=== PATIENT | female | born 1990 | race Two or more races ===

== ENCOUNTER 2017-09-07 13:26 | Emergency (ER) | payer SELFPAY ==
[~2017-09-07] VITALS: Ht 162.6 cm; Wt 88.1 kg
[~2017-09-07 13:26] MED LIST: KEFLEX500 MG PO; MOTRIN600 MG PO
[2017-09-07] MEDS ORDERED: NAPROSYN500 MG PO (15:21)
[2017-09-07 15:29] VITALS: BP 128/70
== END 2017-09-07 15:32 | disposition home or self-care (01) ==
LOC: EME 13:26
DX: S83.004A Unspecified dislocation of right patella, initial encounter (principal); S83.91XA Sprain of unspecified site of right knee, initial encounter; W01.10XA Fall on same level from slipping, tripping and stumbling with subsequent striking against unspecified object, initial encounter; Y93.01 Activity, walking, marching and hiking; Y92.009 Unspecified place in unspecified non-institutional (private) residence as the place of occurrence of the external cause
CPT/HCPCS: 73564; 99281; 99284

== ENCOUNTER 2018-02-01 09:22 | Emergency (ER) | payer SELFPAY ==
[~2018-02-01 09:22] MED LIST changes: +NAPROSYN500 MG PO
== END 2018-02-01 09:30 | disposition left against medical advice (07) ==
LOC: EME 09:22
DX: Z20.2 Contact with and (suspected) exposure to infections with a predominantly sexual mode of transmission (principal); Z53.21 Procedure and treatment not carried out due to patient leaving prior to being seen by health care provider

== ENCOUNTER 2018-02-26 19:47 | Emergency (ER) | payer OTHER ==
[~2018-02-26] VITALS: Ht 162.6 cm; Wt 90.2 kg
[2018-02-26 21:43] LABS: HEMATOCRIT 39.7 % (36.0-46.0); MCH 33.3 PG (29.0-34.0); MCHC 35.3 G/DL (30.0-36.0); MCV 94.3 FL (83-99); PLATELET COUNT 232 K/uL (156-360); RBC DIS.WIDTH-CV 11.5 % (11.8-14.6); RBC DIS.WIDTH-SD 39.5 % (39-53); RED BLOOD COUNT 4.21 M/uL (3.80-5.20); WHITE BLOOD COUNT 7.5 K/uL (4.1-10.2)
[2018-02-26 21:52] LABS: D-DIMER ELISA < 150.00 ng/mLDDU (<230)
[2018-02-26 21:56] LABS: ALBUMIN 4.2 g/dL (3.2-4.8); CHLORIDE 107 mEq/L (99-109); POTASSIUM 4.3 mEq/L (3.7-5.4); SODIUM 141 mEq/L (136-147)
[2018-02-26 21:58] LABS: GLUCOSE 92 mg/dL (70-99); TOTAL PROTEIN 6.7 g/dL (6.4-8.3)
[2018-02-26 22:00] LABS: TOTAL BILIRUBIN 0.8 mg/dL (0.0-1.0)
[2018-02-26 22:02] LABS: ALKALINE PHOSPHATASE 77 IU/L (3-129); CREATININE 1.1 mg/dL (0.6-1.3); GFR ESTIMATE (CALCULATED) > 59 mL/min/
[2018-02-26 22:03] LABS: AST (GOT) 34 IU/L (2-34); UREA NITROGEN (BUN) 17 mg/dL (9-23)
[2018-02-26 22:05] LABS: ALT (GPT) 42 IU/L (3-49)
[2018-02-26] MEDS ORDERED: PREDNISONE10 M1 PO (22:25)
[2018-02-26] MEDS ORDERED: VENTOLIN HFA18 GM IH (22:25)
[2018-02-26 22:37] VITALS: BP 146/103
[2018-02-26 22:55] LABS: QUANTITATIVE HCG 7.9 MIU/ML
== END 2018-02-26 22:38 | disposition home or self-care (01) ==
LOC: EME 19:47
PROVIDERS: Physician Assistant
DX: O99.89 Other specified diseases and conditions complicating pregnancy, childbirth and the puerperium (principal); Z77.120 Contact with and (suspected) exposure to mold (toxic); J06.9 Acute upper respiratory infection, unspecified; R51 Headache; O99.331 Smoking (tobacco) complicating pregnancy, first trimester; F17.200 Nicotine dependence, unspecified, uncomplicated
CPT/HCPCS: 71046; 80053; 84702; 85027; 85379